=== PATIENT | male | born 1985 | race Hispanic/Latino ===

== ENCOUNTER 2017-05-11 09:03 | Emergency (ER) | payer OTHER ==
[~2017-05-11] VITALS: Ht 177.8 cm; Wt 87.8 kg
[~2017-05-11 09:03] MED LIST: NAPROSYN500 MG PO; NO HOME MEDS PER PT
[2017-05-11] MEDS ORDERED: AMOXICILLIN500 MG PO (11:04)
[2017-05-11 11:13] VITALS: BP 121/75
== END 2017-05-11 11:24 | disposition home or self-care (01) | DRG 159 ==
LOC: ED 09:03
PROC: 0CQ0XZZ Repair Upper Lip, External Approach (ICD-10-PCS; principal; 2017-05-11)
DX: S01.511A Laceration without foreign body of lip, initial encounter (principal); W31.89XA Contact with other specified machinery, initial encounter; Y93.89 Activity, other specified; Y92.89 Other specified places as the place of occurrence of the external cause

== ENCOUNTER 2017-05-12 10:12 | Emergency (ER) | payer OTHER ==
[~2017-05-12] VITALS: Ht 177.8 cm; Wt 82.0 kg
[~2017-05-12 10:12] MED LIST changes: +AMOXICILLIN500 MG PO
[2017-05-12 11:00] VITALS: BP 123/75
== END 2017-05-12 11:04 | disposition home or self-care (01) | DRG 950 ==
LOC: ED 10:12
DX: S01.511D Laceration without foreign body of lip, subsequent encounter (principal)

== ENCOUNTER 2017-05-19 10:38 | Emergency (ER) | payer OTHER ==
[~2017-05-19] VITALS: Ht 177.8 cm; Wt 81.0 kg
[2017-05-19 11:20] VITALS: BP 135/77
== END 2017-05-19 11:20 | disposition home or self-care (01) | DRG 950 ==
LOC: ED 10:38
DX: S01.511D Laceration without foreign body of lip, subsequent encounter (principal)

== ENCOUNTER 2022-07-09 18:06 | Emergency (ER) | payer SELFPAY ==
[~2022-07-09] VITALS: Ht 177.8 cm; Wt 88.4 kg
[2022-07-09] MEDS ORDERED: TESSALON PERLE100 MG PO (21:04)
[2022-07-09] MEDS ORDERED: DECADRON4 MG PO (21:04)
[2022-07-09 21:15] VITALS: BP 122/74
== END 2022-07-09 21:20 | disposition home or self-care (01) | DRG 203 ==
LOC: ED 18:06
DX: J40 Bronchitis, not specified as acute or chronic (principal)

== ENCOUNTER 2023-06-05 23:31 | Emergency (ER) | payer BC ==
[~2023-06-05] VITALS: Ht 177.8 cm; Wt 91.0 kg
[~2023-06-05 23:31] MED LIST changes: +DECADRON4 MG PO; +TESSALON PERLE100 MG PO
[2023-06-05 23:42] VITALS: BP 130/91
[2023-06-05 23:45] VITALS: BP 119/81
[2023-06-06] VITALS: BP 114/85
[2023-06-06 00:15] VITALS: BP 111/83
[2023-06-06 00:31] VITALS: BP 124/89
[2023-06-06] MEDS ORDERED: SULFACET SOD10 % OU (00:36)
[2023-06-06 00:45] VITALS: BP 120/87
[2023-06-06 00:53] VITALS: BP 120/87
== END 2023-06-06 01:00 | disposition home or self-care (01) | DRG 125 ==
LOC: ED 23:31
DX: H10.9 Unspecified conjunctivitis (principal)